=== PATIENT | male | born 1955 | race Caucasian/White ===

== ENCOUNTER 2022-02-18 23:26 | Inpatient (IN) | payer MEDICARE, OTHER ==
[~2022-02-18] VITALS: Ht 180.3 cm; Wt 99.3 kg
--- NOTE | 2022-02-18 23:38 | NUR ---
DR. REGAN AT BEDSIDE, MSE IN PROGRESS.
--- NOTE | 2022-02-18 23:58 | NUR ---
GAVE REPORT TO ANDI.
[2022-02-19] MEDS ORDERED: POTASSIUM BICARBONATE/CIT AC 25 MEQ TABLET.EFF PO ONE
[2022-02-19] MEDS ORDERED: POTASSIUM BICARBONATE/CIT AC 25 MEQ TABLET.EFF ONE (00:08)
[2022-02-19 01:00] VITALS: BP 142/91
--- NOTE | 2022-02-19 01:00 | NUR ---
Pt. admitted to MHU , under care of Dr. Stuart and Eric Mccarty Dx: psychosis, 5150 hold DTS Belongs List completed
[2022-02-19] MEDS ORDERED: ACETAMINOPHEN 325 MG TABLET PO PRN (01:45)
[2022-02-19] MEDS ORDERED: LORAZEPAM 0.5 MG TABLET PO PRN (01:45)
[2022-02-19] MEDS ORDERED: MAG HYDROX/AL HYDROX/SIMETH 30 ML LIQUID UDC PO PRN (01:45)
[2022-02-19] MEDS ORDERED: MAGNESIUM HYDROXIDE 30 ML LIQUID UDC PO PRN (01:45)
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
[2022-02-19 07:43] VITALS: BP 117/68
[2022-02-19] MEDS ORDERED: OLANZAPINE 2.5 MG TABLET PO SCH (09:30)
[2022-02-19] MEDS: DIVALPROEX 250 MG TABLET.DR PO SCH ×3 (09:55→16:30)
--- NOTE | 2022-02-19 10:09 | NUR ---
Gps/Port Captain- Irritable, demanding on simple needs. Complaining of right shoulder pain, claimed had been bothering him , and supposed to have surgery , requesting oxycodone tab., informed he does not have any order for it. Patient also requesting to be seen by a , Director Data Analytics was informed.
--- NOTE | 2022-02-19 11:00 | NUR ---
Gps/Front End Java Developer- Dr Donnie Hackett was in to see patient was informed of > pain right shoulder, examined ROM right shoulder . orders received. X-ray 2 viewes right shoulder, Advance 5/325 mg po was given as ordered patient was well informed, verbalized adequate relief, patient stayed in the dinning room during his lunch.
--- NOTE | 2022-02-19 11:37 | NUR ---
GPS: CAME TO VISIT AND EVALUATED THE PT. ORDERED NORCO 5/325MG Q6HR PRN FOR RIGHT SHOULDER PAIN. ALSO ORDERED RIGHT SHOULDER X-RAY. PER PT, HE HAS OSTEOARTHRITIS AND HAD PLAN OF HAVING SURGERY A WEEK AGO BEFORE ADMISSION HERE.
[2022-02-19] MEDS: HYDROCODONE/APAP 5-325MG TABLET PO PRN ×2 (12:12→18:14)
[2022-02-19] MEDS ORDERED: TAMS-3 PO (13:20)
[2022-02-19 13:33] LABS: THYROID STIMULATING HORMONE 0.371 mIU/mL (0.358-3.740)
[2022-02-19 16:17] VITALS: BP 130/73
[2022-02-19] MEDS: OLANZAPINE 5 MG TABLET PO SCH (20:44)
--- NOTE | 2022-02-19 21:30 | NUR ---
received patient in his room in bed sleeping but easily arousable. patient is noted A/O x 2 to 3. He is noted easily irritable. affect is blunted mood is irritable. he has poor insight and judgment into his admission to MHU.He stated, "I know why I am here but is all lies. I know the process. I am not mad it is just the way i talk but I get blame that i am mad". Patient noted guarded. he is fixed on going home after his 72 hrs hold is . Patient is compliant with his [facility] medication regiment. He was given PO fluids and snacks. V/S are stable. patient is reassured for his safety. safety and fall precaution are in place. will continue to monitor.
[2022-02-20] MEDS: HYDROCODONE/APAP 5-325MG TABLET PO PRN ×4 (00:34→19:33)
[2022-02-20 07:17] LABS: HEMATOCRIT 41.4 % (36.7-47.1); MEAN CORPUSCULAR HEMOGLOBIN 28.9 uug (23.8-33.4); MEAN CORPUSCULAR VOLUME 84.2 fL (73.0-96.2); PLATELET COUNT (AUTO) 154 K/uL (152-348)
[2022-02-20 07:30] LABS: BILIRUBIN,TOTAL 0.7 mg/dL (0.2-1.0); CREATININE 0.9 mg/dL (0.6-1.3); MAGNESIUM 2.2 mg/dL (1.8-2.4); PHOSPHOROUS 3.8 mg/dL (2.5-4.9); TOTAL PROTEIN, SERUM 6.4 g/dL (6.4-8.2)
[2022-02-20 07:37] VITALS: BP 148/87
[2022-02-20] MEDS: DIVALPROEX 250 MG TABLET.DR PO SCH ×3 (08:52→16:53)
[2022-02-20] MEDS: OLANZAPINE 5 MG TABLET PO SCH ×3 (08:57→20:07)
[2022-02-20] MEDS: LIDOCAINE 5% PATCH TD SCH (08:57)
[2022-02-20] MEDS ORDERED: OLANZAPINE 2.5 MG TABLET PO SCH (09:00)
[2022-02-20] MEDS ORDERED: TAMSULOSIN HCL 0.4 MG CAP.SR.24H PO SCH (09:00)
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
[2022-02-20 16:55] VITALS: BP 142/82
[2022-02-20] MEDS: TAMSULOSIN HCL 0.4 MG CAP.SR.24H PO SCH (20:07)
[2022-02-20 20:37] VITALS: BP 119/71
[2022-02-21] MEDS: HYDROCODONE/APAP 5-325MG TABLET PO PRN ×4 (01:00→19:57)
--- NOTE | 2022-02-21 03:15 | NUR ---
GPS NOTES: Received patient in the hallway, patient asking for [place] d/t right shoulder pain 8/10, [place] administered. Patient isolative in his room and avoidant with staff. A&0x3, no apparent distress. Denies SI. Re-assess [place] after an hour, patient to be sleeping but easily arousable, denies pain at this time. Medication compliant. @130 patient asked for prn [place] d/t 7/10 pain, facial grimacing noted. Re-assess in an hour, patient to be sleeping at this time. Closely monitoring observed.
[2022-02-21 07:46] VITALS: BP 125/78
[2022-02-21] MEDS: LIDOCAINE 5% PATCH TD SCH (08:01)
[2022-02-21] MEDS: DIVALPROEX 250 MG TABLET.DR PO SCH ×3 (08:01→16:25)
[2022-02-21] MEDS: OLANZAPINE 5 MG TABLET PO SCH ×3 (08:01→20:03)
--- NOTE | 2022-02-21 13:01 | NUR ---
GPS: Nursing Notes: Destructive Behavior To Self: Patient is awake and responding to his name, compliant with his medications, loud and pressured speech, argumentative, but follows directions, denies SI/HI, verbally rudi for safety, gets easily irritable when redirected at times, unkempt appearance, needs prompting to participate in therapeutic groups, unable to formulate a viable plan for self care, continue to monitor for safety, labile, impulsive at times, continue with treatment plan.
[2022-02-21] MEDS: FLUTICASONE PROP NASAL SPRAY 16 GM BOTTLE NS SCH (14:35)
[2022-02-21 16:02] VITALS: BP 125/83
[2022-02-21] MEDS: PHENYLEPHRINE 0.5% NS PRN ×2 (17:15→21:18)
[2022-02-21 20:00] VITALS: BP 127/74
[2022-02-21] MEDS: TAMSULOSIN HCL 0.4 MG CAP.SR.24H PO SCH (20:03)
[2022-02-21] MEDS: TEMAZEPAM 7.5 MG CAPSULE PO PRN (22:10)
[2022-02-22] MEDS: PHENYLEPHRINE 0.5% NS PRN ×3 (01:59→20:27)
[2022-02-22] MEDS: HYDROCODONE/APAP 5-325MG TABLET PO PRN ×3 (02:00→20:09)
--- NOTE | 2022-02-22 06:40 | NUR ---
GPS: Pt.slept 6.30 last night. Med-seeking . Easily irritable when demands/needs are not granted immediately. Re-assured prn. Safe environment provided.
[2022-02-22 07:31] VITALS: BP 131/86
[2022-02-22] MEDS: LIDOCAINE 5% PATCH TD SCH (08:36)
[2022-02-22] MEDS: DIVALPROEX 250 MG TABLET.DR PO SCH ×3 (08:37→16:25)
[2022-02-22] MEDS: OLANZAPINE 5 MG TABLET PO SCH ×3 (08:37→20:07)
[2022-02-22] MEDS: FLUTICASONE PROP NASAL SPRAY 16 GM BOTTLE NS SCH (08:38)
--- NOTE | 2022-02-22 10:41 | NUR ---
GPS: Nursing Notes: Thought Disorder: Patient is awake and responding to his name, overly demanding this am, stated "I need my phone.. the nursing form building supervisor gave an order for me to make phone calls from my cell phone", charge nurse and staff explained the policy of the unit, but stated "I need to talk to the nursing form building supervisor as soon as she comes to the unit..", angry affect, argumentative when redirected, unable to formulate a viable plan for self care, continue to monitor for safety, unkempt appearance, continue with treatment plan.
[2022-02-22 16:13] VITALS: BP 127/76
[2022-02-22 19:51] VITALS: BP 126/84
[2022-02-22] MEDS: TAMSULOSIN HCL 0.4 MG CAP.SR.24H PO SCH (20:07)
[2022-02-22] MEDS: TEMAZEPAM 7.5 MG CAPSULE PO PRN (22:30)
[2022-02-23] MEDS: HYDROCODONE/APAP 5-325MG TABLET PO PRN ×5 (02:10→22:15)
[2022-02-23 07:33] VITALS: BP 129/74
[2022-02-23] MEDS: OLANZAPINE 5 MG TABLET PO SCH ×3 (08:44→21:01)
[2022-02-23] MEDS: DIVALPROEX 250 MG TABLET.DR PO SCH ×2 (08:44→13:09)
[2022-02-23] MEDS: LIDOCAINE 5% PATCH TD SCH (08:45)
[2022-02-23] MEDS: FLUTICASONE PROP NASAL SPRAY 16 GM BOTTLE NS SCH (08:45)
--- NOTE | 2022-02-23 09:07 | NUR ---
Firearms Report: [employer] completed and submitted a [employer] firearms report for 5150 a danger to others. A copy of report has been placed in patient chart.
--- NOTE | 2022-02-23 13:36 | NUR ---
CRISTINA Family Contact: CRISTINA contacted pt's ex-, Clara (person to notify) at ([phone]) and discussed pt's treatment plan. Clara also stated he is definitely evicted effective immediately per pt's landlord, Deja ([phone]) and his belongings are in Deja's warehouse as Clara helped Deja with the boxes. Clara stated she had never been to the patient's house and did not know how unsanitary the living situation was. Clara stated pt appeared to live in a hoarding environment and it was very unsanitary. Clara stated pt's belongings are in Deja's warehouse until further notice. CRISTINA stated that pt continues to state he wants to go home despite agreeing to a half-way facility and states that he has a 30 day notice. SW will continue to inform pt that his landlord stated he cannot return to his home anymore as he is effectively evicted. Pt appears to become anxious, verbally aggressive, hyper verbal and demanding about his rights when told of his current living situation update.
--- NOTE | 2022-02-23 14:15 | NUR ---
PT CONFLUENCE [facility]ALTH 14 DAY HOLD HEARING DONE TODAY AND WITH APPROVE PROBABLE CAUSE OF GRAVE DISABILITY ONLY. PT DID PARTICIPATE WITH THE HEARING AND REQUESTED FOR WRIT ,WRIT SIGNED BY PATIENT AND FAXED TO COURT.
--- NOTE | 2022-02-23 15:53 | NUR ---
GPS: Nursing Notes: Thought Disorder: Patient is awake and responding to his name, argumentative, gets easily irritable when his demands are not met immediately, overly demanding, if he does not get what he wants from staff - immediately asking to speak with someone higher, stating "It is my right..", unable to formulate a viable plan for self care, anxious affect, continue to monitor for safety, continue with treatment plan.
[2022-02-23 16:31] VITALS: BP 150/91
[2022-02-23] MEDS: DIVALPROEX 500 MG TABLET.DR PO SCH (17:00)
[2022-02-23 19:46] VITALS: BP 136/76
[2022-02-23] MEDS: PHENYLEPHRINE 0.5% NS PRN (19:46)
[2022-02-23] MEDS: TAMSULOSIN HCL 0.4 MG CAP.SR.24H PO SCH (21:01)
[2022-02-23] MEDS: TEMAZEPAM 7.5 MG CAPSULE PO PRN (21:02)
[2022-02-24] MEDS: HYDROCODONE/APAP 5-325MG TABLET PO PRN ×4 (03:29→20:29)
[2022-02-24 06:59] LABS: HEMATOCRIT 43.2 % (36.7-47.1); MEAN CORPUSCULAR VOLUME 85.3 fL (73.0-96.2); PLATELET COUNT (AUTO) 139 K/uL (152-348)
[2022-02-24 07:14] LABS: BILIRUBIN,TOTAL 0.6 mg/dL (0.2-1.0); CREATININE 0.8 mg/dL (0.6-1.3)
[2022-02-24 07:30] VITALS: BP 135/90
[2022-02-24] MEDS: DIVALPROEX 250 MG TABLET.DR PO SCH ×2 (09:20→13:40)
[2022-02-24] MEDS: LIDOCAINE 5% PATCH TD SCH (09:21)
[2022-02-24] MEDS: FLUTICASONE PROP NASAL SPRAY 16 GM BOTTLE NS SCH (09:21)
[2022-02-24] MEDS: OLANZAPINE 5 MG TABLET PO SCH ×3 (09:21→20:25)
--- NOTE | 2022-02-24 14:09 | NUR ---
GPS: Nursing Notes: Thought Disorder: Patient is awake and responding to his name, overly demanding at times, gets easily irritable when his demands are not met immediately, redirected, but asking for someone higher up in administration, spoke with recruiting administrator - Lashell yesterday, but asking to speak with her again as soon she is in the unit, unable to formulate a viable plan for self care, impaired judgment, continue with treatment plan.
[2022-02-24] MEDS: MELOXICAM 7.5 MG TABLET PO SCH (14:18)
[2022-02-24 15:39] VITALS: BP 139/89
--- NOTE | 2022-02-24 15:45 | NUR ---
CRISTINA Family Contact: CRISTINA contacted pt's ex- who is the person to notify, Clara ([phone]) and discussed pt's hyper verbal and anxious behavior. Clara stated this is very common for the pt as he is very manipulative. CRISTINA stated pt is agreeable to a senior living facility. Clara is aware and agreeable. Clara stated the pt will state he wants to juana everyone as this is very common of the pt per Clara. Clara also stated he is definitely evicted per pt's landlord, Deja ([phone]) and his belongings are in Deja's warehouse as Clara helped Deja with the boxes. CRISTINA will continue to inform pt to ensure his awareness on the situation.
[2022-02-24] MEDS: DIVALPROEX 500 MG TABLET.DR PO SCH (16:49)
[2022-02-24] MEDS: PHENYLEPHRINE 0.5% NS PRN (19:12)
[2022-02-24 20:10] VITALS: BP 148/76
[2022-02-24] MEDS: TAMSULOSIN HCL 0.4 MG CAP.SR.24H PO SCH (20:25)
[2022-02-24] MEDS: TEMAZEPAM 7.5 MG CAPSULE PO PRN (21:22)
[2022-02-25] MEDS: HYDROCODONE/APAP 5-325MG TABLET PO PRN (06:38)
[2022-02-25 07:30] VITALS: BP 130/82
[2022-02-25] MEDS: PHENYLEPHRINE 0.5% NS PRN (07:46)
--- NOTE | 2022-02-25 08:21 | NUR ---
Clinical Social Work Note: Pt stated to SW in an agitated tone that he demands to speak to administration and the ASSURANCE AUDITOR and demands he gets his phone before his discharge today. Pt stated "I don't care if you already informed them I want you calling until they come!" Pt appeared manic and verbally aggressive to SW. SW stated that she will continue calling. Pt stated I have orthodox rights and I want my phone. Pt stated there is nothing to discuss they need to ruddy my rights because its a policy and not a law." Pt continued to wait by the SW's office and continually asked if SW had called and if they were coming. Pt appeared angry, demanding and threatened to juana. Pt stated angrily, "I will be coming to you to keep checking until they come here and give me my phone."
[2022-02-25] MEDS: LIDOCAINE 5% PATCH TD SCH (08:25)
[2022-02-25] MEDS: DIVALPROEX 250 MG TABLET.DR PO SCH (08:25)
[2022-02-25] MEDS: OLANZAPINE 5 MG TABLET PO SCH (08:25)
[2022-02-25] MEDS: MELOXICAM 7.5 MG TABLET PO SCH (08:25)
[2022-02-25] MEDS: FLUTICASONE PROP NASAL SPRAY 16 GM BOTTLE NS SCH (08:25)
[2022-02-25] MEDS ORDERED: DIVALPROEX 250 MG TABLET.DR PO ONE (09:45)
--- NOTE | 2022-02-25 09:46 | NUR ---
GPS: RECEIVED PT THIS MORNING PACING THE HALLWAY, WITH EPISODE OF TALKING TO SELF. PT SOMEWHAT DEMANDING, AND NEEDY. EXPLAINED TO PT ABOUT GETTING BACK THE CELLPHONE ONCE A PT IS DISCHARGE TO THE FACILITY. PT DIS-AGREE STATING " IT'S NOT A LAW, IT'S JUST A POLICY". ORAL HYGIENIST, NON-ARGUING WITH PT. PT WITH NEW DOSAGE OF DEPAKOTE, 250MG GIVEN ONE TIME AND PT COMPLIANT WITH IT. PT GOES TO GROUP THERAPY, SEEN WATERING THE PLANT.
--- NOTE | 2022-02-25 10:12 | NUR ---
Clinical Social Work Note Patient demanding to speak to administration. Spoke to patient AT [facility] who demanded his cell phone " for prayers that take 9 hours ". He stated that " we are violating his rights by not allowing him to have his phone all day and practice his orthodoxy". Advised the patient that our unit has rules that preclude unlimited cell phone use" but assured him he could pray in his room all day if he wished to do so. visited him earlier in the week. Patient did not understand this. Patient said " I want all the C suite names and the TOOL CARRIER's name. I will juana you. You are violating my rights and not letting me practise my orthodoxy". Patient's presentation is hostile, hypomanic with pressured speech. Advised Dr Talavera discharging psychiatrist ( covering for Dr Harley) re patient's behavior.
--- NOTE | 2022-02-25 10:18 | NUR ---
GPS: UPON SPEAKING WITH DIRECTOR OF THE UNIT, PT WAS GRANTED TO USE HIS OWN CELLPHONE FOR 30 MINUTES FOR HIS REQUEST THAT HE USE THE CELLPHONE FOR HIS PRAYERS. DISTRICT SALES LEADER AND ANOTHER NURSE MADE AWARE. PT SEEMS ANXIOUS AND AGITATED, OFFERED ATIVAN BUT REFUSED, STATING " DO I LOOK LIKE ANXIOUS OR AGITATED TO YOU?". PT ALSO ASKING DIRECTOR FOR LIST OF NAMES OF ADMINISTRATION AND STAFF. PT IS THREATENING TO [facility] THE FACILITY.
--- NOTE | 2022-02-25 11:10 | NUR ---
CRISTINA Discharge Note: Pt will be discharged to [facility] [place] [address] ([phone]) via Ambulance transportation at 1PM. CRISTINA spoke with admin coordinator, Luis Felipe and Pura at the facility who states they are ready to accept the patient today. Pt is aware and agreeable with discharge plans. Pt is alert and oriented x4, is unable to plan for self-care at this time; however, is willing to accept care at SNF. Pts ex-, Clara (person to notify [phone]) is aware and agreeable with the discharge plan. Clara stated that pts landlord Deja ([phone]) has confirmed that pt is evicted and cannot return to his home. Per Clara, Deja has pts belongings kept safe in a storage until pt is able to collect them. Pt denies any suicidal or homicidal ideation. Pt will follow-up at the facility with Psychiatrist, Dr. Harley and Trolley Car Mechanic, Dr. Centeno. Pt presents with calm mood and congruent affect. PHARMACY: [facility] [phone]) [address] [place] [address].
--- NOTE | 2022-02-25 12:16 | NUR ---
GPS: PT ASKED BY COOPERATIVE EDUCATION COORDINATOR TO SIGN ALL DISCHARGE PAPERS, ABOUT TO EXPLAIN TO PT BUT HE REFUSED, INSTEAD HE INSISTED TO JUST READ ALL THE PAPERS AND SIGNED IT ALL. PT WROTE NOTE ON SOME PAPERS STATING "THIS PAGE WAS BLANK WHEN THE NURSE PRESENTED IT TO ME FOR SIGNATURE". EXPLAINING TO PT BUT LA REFUSED TO LISTEN AND JUST WALK AWAY.
[2022-02-25] MEDS ORDERED: DIVALPROEX 250 MG TABLET.DR PO SCH (13:00)
[2022-02-25] MEDS ORDERED: DIVALPROEX 500 MG TABLET.DR PO SCH (13:00)
[2022-02-25] MEDS ORDERED: OLANZAPINE 5 MG TABLET PO SCH (13:00)
--- NOTE | 2022-02-25 13:38 | NUR ---
GPS: PT DISCHARGED AT THE FACILITY. PT DENIES PAIN OR DISCOMFORT. COOPERATIVE WITH THE DISCHARGE AND WITH THE AMBULANCE TRANSPORTATION PERSONNEL. DISCHARGE REPORT DONE TO BRANDON, ADMITTING NURSE OF OTIS CHANG.
== END 2022-02-25 13:40 | DRG 885 ==
LOC: ER 23:41 → GPS 23:59
PROVIDERS: ADMIT Psychiatry & Neurology Psychosomatic Medicine
DX: F25.0 Schizoaffective disorder, bipolar type (principal); Z20.822 Contact with and (suspected) exposure to COVID-19; Z96.612 Presence of left artificial shoulder joint; Z73.6 Limitation of activities due to disability; M19.012 Primary osteoarthritis, left shoulder; M19.011 Primary osteoarthritis, right shoulder; Z86.73 Personal history of transient ischemic attack (TIA), and cerebral infarction without residual deficits; S46.001A Unspecified injury of muscle(s) and tendon(s) of the rotator cuff of right shoulder, initial encounter; X58.XXXA Exposure to other specified factors, initial encounter; Y93.9 Activity, unspecified; Y92.89 Other specified places as the place of occurrence of the external cause; G89.29 Other chronic pain; F32.A Depression, unspecified; E83.51 Hypocalcemia; E87.6 Hypokalemia
CPT/HCPCS: 36415; 73020; 80164; 83735; 84100; 84443; 85025; 97161; J3490; J3535